=== PATIENT | female | born 1950 | race Caucasian/White ===

== ENCOUNTER 2016-08-29 07:47 | Inpatient (IN) | payer MEDICARE, BC ==
[~2016-08-29 07:47] MED LIST: AMARYL4 MG; ARTHROTEC 75 M1 EACH PO; ATORVASTATIN CA10 M1 PO; BETAPACE AF120 M1 PO; CELEBREX200 MG PO; CELEXA20 MG; CLEOCIN HCL300 M1 PO; GLUCOPHAGE850 MG; HUMULIN 70100 UNIT/3 SC; LASIX20 M1 PO; LISINOPRIL20 MG; LISINOPRIL40 M1 PO; MIRALAX17 G2 PO; MULTI VIT W/CAL1 TAB; NORCO 5-325 TA1 EACH PO; NORVASC2.5 MG PO; PERCOCET 5-3251 EACH PO; PRADAXA150 M1 PO; PRAVACHOL40 MG; REQUIP0.5 M1 PO; SERTRALINE HCL100 M5 PO; WOMEN'S DAILY1 EAC4 PO
[2016-08-29 08:10] LABS: BASO % 0.6 % (0-2); EOS % 2.5 % (0-7); EOSINOPHIL ABSOLUTE COUNT 0.2 tho/cmm (0.0-0.7); HCT-HEMATOCRIT 44.2 % (34.0-49.0); HGB-HEMOGLOBIN 14.9 gm/dl (12.0-15.5); IMMATURE GRANULOCYTES ABSOLUTE 0.01 tho/cmm (0-0.03); IMMATURE GRANULOCYTES PERCENT 0.1 % (0-0.3); LYMPH % 35.2 % (20-45); LYMPH ABSOLUTE COUNT 2.5 tho/cmm (0.8-4.5); MCH (MEAN CORPUSCULAR HGB) 30.1 pg (28.0-32.0); MCHC MEAN CORPUSCULAR HGB CONC 33.7 % (32.0-36.0); MCV (MEAN CELL VOLUME) 89.3 fl (82.0-96.0); MEAN PLATELET VOLUME 11.1 cmc (9.4-12.4); MONO % 7.5 % (0-12); MONOCYTE ABSOLUTE COUNT 0.5 tho/cmm (0.0-1.2); NEUTROPHIL ABSOLUTE COUNT 3.8 tho/cmm (1.6-8.0); NEUTROPHIL-AUTOMATED 3.8 tho/cmm (1.6-8.0); NEUTROPHILS % 54.1 % (40-80); PLATELET COUNT 272 tho/cmm (150-450); RED BLOOD COUNT 4.95 mil/cmm (4.00-5.20); RED CELL DISTRIBUTION WIDTH 14.6 % (12.4-16.4); WHITE BLOOD COUNT 7.1 tho/cmm (4.0-10.0)
[2016-08-29] MEDS ORDERED: OMEPRAZOLE40 M2 PO (08:19)
[2016-08-29 08:27] LABS: ANION GAP 16 mmol/L (0-20); BLOOD UREA NITROGEN 8 mg/dl (6-24); CARBON DIOXIDE-VENOUS 24 mmol/L (22-32); CHLORIDE 109 mmol/l (96-110); CREATININE 0.74 mg/dl (0.50-1.10); GLUCOSE 162 mg/dL (70-110); POTASSIUM 3.9 mmol/L (3.7-5.1); SODIUM 145 mmol/L (135-145); eGFR VALUE FOR BLACK >90 mL/Min
[2016-08-29 08:30] LABS: MAGNESIUM 1.8 mg/dl (1.8-2.6)
[2016-08-29 08:34] LABS: TSH-THYROID STIMULATING HORM. 1.92 uIU/ml (0.40-3.80)
[2016-08-29 12:47] LABS: CHOLESTEROL 155 mg/dl (120-200); HDL CHOLESTEROL 43 mg/dl (40-60); LDL CHOLESTEROL 73 mg/dl (0-99); VLDL 40 mg/dl (0-30)
[2016-08-29 12:48] LABS: TRIGLYCERIDES 198 mg/dl (<149)
[2016-08-29 13:20] LABS: PROTHROMBIN TIME 11.5 SECONDS (9.0-13.6)
[2016-09-01 06:35] LABS: BLOOD UREA NITROGEN 17 mg/dl (6-24); CREATININE 0.99 mg/dl (0.50-1.10); eGFR VALUE FOR BLACK 69 mL/Min
[2016-09-08] MEDS ORDERED: ARTHROTEC 75 M1 EACH PO (16:42)
[2016-09-08] MEDS ORDERED: ROPINIROLE HCL0.5 M1 PO (16:43)
[2016-09-09] MEDS ORDERED: PRADAXA150 M1 PO (09:35)
[2016-09-09] MEDS ORDERED: TRAMADOL HCL50 M2 PO (09:36)
[2016-09-09] MEDS ORDERED: CPAP (11:05)
[2016-09-13] MEDS ORDERED: BACTRIM DS TAB1 EAC2 PO (11:58)
== END 2016-09-01 11:30 | DRG 287 ==
LOC: EDMED 07:47 → EMR2 10:48 → PCUA 12:00
PROVIDERS: Emergency Medicine; Internal Medicine Cardiovascular Disease; Nurse Practitioner Acute Care; ADMIT Internal Medicine Cardiovascular Disease
PROC: 5A2204Z Restoration of Cardiac Rhythm, Single (ICD-10-PCS; principal; 2016-08-31)
PROC: 4A023N8 Measurement of Cardiac Sampling and Pressure, Bilateral, Percutaneous Approach (ICD-10-PCS; 2016-08-31)
PROC: B216YZZ Fluoroscopy of Right and Left Heart using Other Contrast (ICD-10-PCS; 2016-08-31)
PROC: B211YZZ Fluoroscopy of Multiple Coronary Arteries using Other Contrast (ICD-10-PCS; 2016-08-31)
DX: I42.9 Cardiomyopathy, unspecified (principal); I48.0 Paroxysmal atrial fibrillation; I10 Essential (primary) hypertension; I25.110 Atherosclerotic heart disease of native coronary artery with unstable angina pectoris; I51.7 Cardiomegaly; K21.9 Gastro-esophageal reflux disease without esophagitis; E78.00 Pure hypercholesterolemia, unspecified; F32.9 Major depressive disorder, single episode, unspecified; E11.9 Type 2 diabetes mellitus without complications; M19.90 Unspecified osteoarthritis, unspecified site; E78.5 Hyperlipidemia, unspecified; G47.33 Obstructive sleep apnea (adult) (pediatric); Z79.4 Long term (current) use of insulin; Z90.710 Acquired absence of both cervix and uterus; Z90.49 Acquired absence of other specified parts of digestive tract; Z79.01 Long term (current) use of anticoagulants
CPT/HCPCS: C1894; G0378; J1644; J1815; J2250; J3010; Q9967

== ENCOUNTER 2016-09-14 11:21 | Inpatient (IN) | payer MEDICARE, BC ==
[~2016-09-14 11:21] MED LIST changes: +BACTRIM DS TAB1 EAC2 PO; +CPAP; +OMEPRAZOLE40 M2 PO; +ROPINIROLE HCL0.5 M1 PO; +TRAMADOL HCL50 M2 PO
[2016-09-14 12:24] LABS: PROTHROMBIN TIME 11.6 SECONDS (9.0-13.6)
[2016-09-15 05:52] LABS: BASO % 0.1 % (0-2); EOS % 0.1 % (0-7); HCT-HEMATOCRIT 35.4 % (34.0-49.0); HGB-HEMOGLOBIN 11.7 gm/dl (12.0-15.5); IMMATURE GRANULOCYTES ABSOLUTE 0.03 tho/cmm (0-0.03); IMMATURE GRANULOCYTES PERCENT 0.3 % (0-0.3); LYMPH % 10.1 % (20-45); LYMPH ABSOLUTE COUNT 1.2 tho/cmm (0.8-4.5); MCH (MEAN CORPUSCULAR HGB) 29.5 pg (28.0-32.0); MCHC MEAN CORPUSCULAR HGB CONC 33.1 % (32.0-36.0); MCV (MEAN CELL VOLUME) 89.2 fl (82.0-96.0); MEAN PLATELET VOLUME 11.2 cmc (9.4-12.4); MONO % 10.2 % (0-12); MONOCYTE ABSOLUTE COUNT 1.2 tho/cmm (0.0-1.2); NEUTROPHIL ABSOLUTE COUNT 9.3 tho/cmm (1.6-8.0); NEUTROPHIL-AUTOMATED 9.3 tho/cmm (1.6-8.0); NEUTROPHILS % 79.2 % (40-80); PLATELET COUNT 233 tho/cmm (150-450); RED BLOOD COUNT 3.97 mil/cmm (4.00-5.20); RED CELL DISTRIBUTION WIDTH 14.8 % (12.4-16.4); WHITE BLOOD COUNT 11.8 tho/cmm (4.0-10.0)
[2016-09-16] MEDS ORDERED: ASPIRIN325 M3 PO (10:47)
[2016-09-16] MEDS ORDERED: ROXICODONE5 M2 PO (10:48)
[2016-09-16] MEDS ORDERED: TYLENOL325 M2 PO (10:49)
== END 2016-09-16 13:44 | DRG 470 ==
LOC: SHSC 11:21 → ORE 13:11 → PACU 16:03 → 5EA 17:26
PROVIDERS: Physician Assistant; ADMIT Orthopaedic Surgery
PROC: 0SRB04A Replacement of Left Hip Joint with Ceramic on Polyethylene Synthetic Substitute, Uncemented, Open Approach (ICD-10-PCS; principal; 2016-09-14)
DX: M16.12 Unilateral primary osteoarthritis, left hip (principal); I48.91 Unspecified atrial fibrillation; E66.9 Obesity, unspecified; E11.9 Type 2 diabetes mellitus without complications; Z79.01 Long term (current) use of anticoagulants; E78.5 Hyperlipidemia, unspecified; I10 Essential (primary) hypertension; G89.29 Other chronic pain; M54.9 Dorsalgia, unspecified; Z68.36 Body mass index [BMI] 36.0-36.9, adult
CPT/HCPCS: C1776; J0171; J0690; J1815; J1885; J2270; J2795; J3010